=== PATIENT | female | born 2000 | race Caucasian/White ===

== ENCOUNTER 2018-07-21 23:11 | Emergency (ER) | payer OTHER ==
[2018-07-21 23:40] VITALS: BP 154/79
[2018-07-22] MEDS ORDERED: HYDROCODONE/ACETAMINOPHEN 5-325 MG (6 TAB/ER DISP) PO PRN (00:37)
[2018-07-22] MEDS ORDERED: SILVER SULFADIAZINE 1% CREAM 25 GM TP ONE (00:37)
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
== END 2018-07-22 00:51 | disposition home or self-care (01) ==
LOC: ER 23:11
DX: T24.211A Burn of second degree of right thigh, initial encounter (principal); X10.1XXA Contact with hot food, initial encounter; Y93.89 Activity, other specified
CPT/HCPCS: 99283